=== PATIENT | female | born 1980 | race Two or more races ===

== ENCOUNTER 2020-03-15 07:30 | Inpatient (IN) | payer OTHER ==
[2020-03-13 10:58] VITALS: BMI 20.7
[2020-03-15 10:37] LABS: POTASSIUM 3.8 mmol/L (3.5-5.1)
[2020-03-15 10:39] LABS: CALCIUM 8.7 mg/dL (8.5-10.1)
[2020-03-15 10:40] LABS: ALBUMIN 3.5 g/dl (3.4-5.0)
[2020-03-15 10:43] LABS: CREATININE 0.9 mg/dL (0.55-1.3)
[2020-03-15 10:44] LABS: BILIRUBIN,TOTAL 0.3 mg/dL (0.2-1); TOT PROT 7.5 g/dl (6.4-8.2)
[2020-03-15 10:59] LABS: BASO % 1.9 % (0-2.0); HEMATOCRIT 19.1 % (32.4-45.2); MCHC 28.1 g/dl (32.0-36.0); MEAN CELL VOLUME 65.1 fl (80-96); MEAN PLT VOLUME 8.7 fl (7.5-11.1); MONO % 6.2 % (3.8-10.2); NEUT % 61.9 % (42.8-82.8); PLATELET COUNT 251 K/MM3 (134-434); RBC 2.93 M/mm3 (3.60-5.2); RDW 21.6 % (11.6-15.6); WHITE BLOOD COUNT 5.2 K/mm3 (4.0-10.0)
[2020-03-15 11:01] LABS: MCH 18.3 pg (25.7-33.7)
[2020-03-15 11:02] LABS: HEMOGLOBIN 5.4 GM/dL (10.7-15.3)
[2020-03-15 11:43] LABS: ANISOCYTOSIS 1+; MACROCYTOSIS 0; PLATELET ESTIMATE NORMAL; ROULEAU 1+
[2020-03-15 16:41] LABS: PH,URINE 8.5 (5.0-8.0); URINE APPEARANCE CLOUDY; URINE BILIRUBIN NEGATIVE (NEGATIVE); URINE COLOR YELLOW; URINE GLUCOSE (UA) NEGATIVE (NEGATIVE); URINE KETONE NEGATIVE (NEGATIVE); URINE LEUK ESTERASE NEGATIVE (NEGATIVE); URINE NITRITE NEGATIVE (NEGATIVE); URINE PROTEIN NEGATIVE (NEGATIVE)
[2020-03-16] MEDS ORDERED: PHENAZOPYRIDINE HCL 100 MG TABLET (FP) PO ONE (07:00)
[2020-03-16] MEDS ORDERED: ceFAZolin 2 GRAM PREMIX BAG IVPB ONE ×2 (07:24→08:05)
[2020-03-16] MEDS ORDERED: BUPIVACAINE LIPOSOME/PF (EXPAREL) 266 MG/20 ML VIAL NR ONE (07:30)
[2020-03-16] MEDS ORDERED: MIDAZOLAM HCL 2 MG/2 ML SINGLE DOSE VIAL ONE ×3 (07:32→07:35)
[2020-03-16] MEDS ORDERED: PROPOFOL 20 ML ONE (07:35)
[2020-03-16] MEDS ORDERED: ROCURONIUM BROMIDE 50 MG/5 ML SYRINGE ONE ×2 (07:35→08:22)
[2020-03-16] MEDS ORDERED: SUCCINYLCHOLINE CHLORIDE 200 MG/10 ML SYRINGE ONE (07:35)
[2020-03-16] MEDS ORDERED: ceFAZolin SODIUM 1 GM VIAL ONE ×3 (08:07→22:38)
[2020-03-16 08:32] LABS: BASO % 1.2 % (0-2.0); EOS % 2.4 % (0-4.5); HEMATOCRIT 31.4 % (32.4-45.2); HEMOGLOBIN 10.2 GM/dL (10.7-15.3); LYMPH % 22.5 % (8-40); MCH 23.3 pg (25.7-33.7); MCHC 32.4 g/dl (32.0-36.0); MEAN CELL VOLUME 71.9 fl (80-96); MEAN PLT VOLUME 8.8 fl (7.5-11.1); NEUT % 66.9 % (42.8-82.8); PLATELET COUNT 260 K/MM3 (134-434); RBC 4.37 M/mm3 (3.60-5.2); RDW 25.9 % (11.6-15.6)
[2020-03-16] MEDS ORDERED: HYDROmorphone HCl 2 MG/ML VIAL ONE (08:32)
[2020-03-16] MEDS ORDERED: DEXAMETHASONE SOD PHOSPHATE 4 MG/1 ML VIAL ONE (08:37)
[2020-03-16] MEDS ORDERED: KETOROLAC TROMETHAMINE 30 MG/1 ML VIAL ONE (08:37)
[2020-03-16] MEDS ORDERED: LIDOCAINE HCL/PF 2% SDV 5ML VIAL ONE (08:37)
[2020-03-16] MEDS ORDERED: NEOSTIGMINE METHYLSULFATE 0.5 MG/ML - 10 ML MDV ONE (09:08)
[2020-03-16] MEDS ORDERED: GLYCOPYRROLATE 0.2 MG/1 ML VIAL ONE (09:09)
[2020-03-16] MEDS ORDERED: DOCUSATE SODIUM 100 MG CAPSULE (FP) PO PRN (09:47)
[2020-03-16] MEDS ORDERED: BISACODYL 5 MG TABLET.DR (FP) PO PRN (09:47)
[2020-03-16] MEDS ORDERED: oxyCODONE HCL 5 MG TABLET PO PRN ×2 (09:47→10:07)
[2020-03-16] MEDS ORDERED: ONDANSETRON 4 MG/2 ML VIAL IVPUSH PRN (09:47)
[2020-03-16] MEDS ORDERED: traMADol HCL 50 MG TABLET PO PRN (10:07)
[2020-03-16] MEDS: ACETAMINOPHEN 1000 MG/100 ML VIAL (NON FORMULARY) IVPB SCH ×3 (10:15→21:22)
[2020-03-16] MEDS: SODIUM CHLORIDE 1,000 ML IV SCH (11:32)
[2020-03-16] MEDS: oxyCODONE HCL 5 MG TABLET PO PRN ×2 (12:18→21:25)
[2020-03-16] MEDS ORDERED: CEFAZOLIN 1 GM/D5W 1 GM/50 ML BAG IVPB SCH (16:00)
[2020-03-16] MEDS: IBUPROFEN 800 MG/8 ML IJ IVPB SCH ×2 (16:13→23:28)
[2020-03-16] MEDS ORDERED: CEFAZOLIN 1 GM in DEXTROSE 5%-WATER - 1 GM/50 ML IVPB IVPB SCH (16:15)
[2020-03-16] MEDS ORDERED: DEXTROSE 5%-WATER - 50 ML IVPB ONE ×2 (16:28→22:38)
[2020-03-16] MEDS: CEFAZOLIN 1 GM in DEXTROSE 5%-WATER - 1 GM/50 ML IVPB IVPB SCH ×2 (16:55→23:28)
[2020-03-16 18:22] LABS: HEMATOCRIT 26.3 % (32.4-45.2); MCH 22.2 pg (25.7-33.7); MCHC 30.2 g/dl (32.0-36.0); MEAN CELL VOLUME 73.4 fl (80-96); MEAN PLT VOLUME 9.6 fl (7.5-11.1); PLATELET COUNT 285 K/MM3 (134-434); RBC 3.58 M/mm3 (3.60-5.2); RDW 25.9 % (11.6-15.6); WHITE BLOOD COUNT 20.8 K/mm3 (4.0-10.0)
[2020-03-16 18:40] LABS: POTASSIUM 4.1 mmol/L (3.5-5.1)
[2020-03-16 18:41] LABS: CALCIUM 8.8 mg/dL (8.5-10.1)
[2020-03-16 18:42] LABS: BLOOD UREA NITROGEN 8.2 mg/dL (7-18)
[2020-03-17] MEDS: SODIUM CHLORIDE 1,000 ML IV SCH ×2 (02:23→11:09)
[2020-03-17] MEDS: ACETAMINOPHEN 1000 MG/100 ML VIAL (NON FORMULARY) IVPB SCH (04:59)
[2020-03-17] MEDS: oxyCODONE HCL 5 MG TABLET PO PRN ×3 (05:30→20:50)
[2020-03-17 07:52] LABS: MCHC 32.1 g/dl (32.0-36.0); MEAN CELL VOLUME 71.7 fl (80-96); MEAN PLT VOLUME 8.9 fl (7.5-11.1); PLATELET COUNT 204 K/MM3 (134-434); RDW 26.7 % (11.6-15.6); WHITE BLOOD COUNT 9.3 K/mm3 (4.0-10.0)
[2020-03-17 08:08] LABS: POTASSIUM 3.5 mmol/L (3.5-5.1)
[2020-03-17 08:17] LABS: HEMOGLOBIN 6.4 GM/dL (10.7-15.3)
[2020-03-17 08:27] LABS: BLOOD UREA NITROGEN 6.8 mg/dL (7-18); CALCIUM 8.1 mg/dL (8.5-10.1)
[2020-03-17 08:30] LABS: CREATININE 0.8 mg/dL (0.55-1.3)
[2020-03-17] MEDS: SIMETHICONE 80 MG TAB.CHEW (FP) PO PRN ×2 (08:53→12:56)
[2020-03-17] MEDS: IBUPROFEN 800 MG/8 ML IJ IVPB SCH (08:54)
[2020-03-17] MEDS: ENOXAPARIN NA (PORCINE) 40 MG/0.4 ML DISP.SYRIN SQ SCH (08:59)
[2020-03-17] MEDS: CEFAZOLIN 1 GM in DEXTROSE 5%-WATER - 1 GM/50 ML IVPB IVPB SCH (10:37)
[2020-03-17] MEDS ORDERED: ACETAMINOPHEN 325 MG TABLET (FP) PO ONE (11:30)
[2020-03-17] MEDS ORDERED: IBUPROFEN 600 MG TABLET (FP) PO PRN (16:00)
[2020-03-17] MEDS ORDERED: ACETAMINOPHEN 325 MG TABLET (FP) PO PRN (18:00)
[2020-03-18] MEDS: SODIUM CHLORIDE 1,000 ML IV SCH ×2 (02:21→14:14)
[2020-03-18 09:00] VITALS: BP 149/86; PULSE 85; TEMP 98.2
[2020-03-18 12:16] LABS: BASO % 0.5 % (0-2.0); EOS % 1.3 % (0-4.5); HEMOGLOBIN 9.5 GM/dL (10.7-15.3); LYMPH % 10.5 % (8-40); MCH 25.2 pg (25.7-33.7); MCHC 32.6 g/dl (32.0-36.0); MEAN CELL VOLUME 77.3 fl (80-96); MEAN PLT VOLUME 9.3 fl (7.5-11.1); MONO % 6.1 % (3.8-10.2); NEUT % 81.6 % (42.8-82.8); PLATELET COUNT 210 K/MM3 (134-434); RBC 3.75 M/mm3 (3.60-5.2); RDW 24.6 % (11.6-15.6); WHITE BLOOD COUNT 9.6 K/mm3 (4.0-10.0)
[2020-03-18 12:21] LABS: INR 1.16 (0.83-1.09)
[2020-03-18 12:44] LABS: POTASSIUM 3.6 mmol/L (3.5-5.1)
[2020-03-18 12:46] LABS: BLOOD UREA NITROGEN 4.4 mg/dL (7-18); CALCIUM 8.8 mg/dL (8.5-10.1)
[2020-03-18 12:47] LABS: ALBUMIN 3.1 g/dl (3.4-5.0)
[2020-03-18 12:50] LABS: CREATININE 0.8 mg/dL (0.55-1.3)
[2020-03-18 12:51] LABS: BILIRUBIN,TOTAL 0.8 mg/dL (0.2-1); TOT PROT 6.9 g/dl (6.4-8.2)
[2020-03-18] MEDS: ENOXAPARIN NA (PORCINE) 40 MG/0.4 ML DISP.SYRIN SQ SCH (14:14)
== END 2020-03-18 14:15 | disposition home or self-care (01) | DRG 742 ==
LOC: J7W 08:11
PROVIDERS: ADMIT Obstetrics & Gynecology; ATTEND Obstetrics & Gynecology
PROC: 30233N1 Transfusion of Nonautologous Red Blood Cells into Peripheral Vein, Percutaneous Approach (ICD-10-PCS; 2020-03-15)
PROC: 0UB70ZZ Excision of Bilateral Fallopian Tubes, Open Approach (ICD-10-PCS; 2020-03-16)
PROC: 0UT90ZZ Resection of Uterus, Open Approach (ICD-10-PCS; principal; 2020-03-16 07:30)
DX: D25.9 Leiomyoma of uterus, unspecified (principal); D62 Acute posthemorrhagic anemia; N92.0 Excessive and frequent menstruation with regular cycle; N83.8 Other noninflammatory disorders of ovary, fallopian tube and broad ligament; N71.1 Chronic inflammatory disease of uterus; N72 Inflammatory disease of cervix uteri
CPT/HCPCS: 36415; 36430; 71045-TC-FY; 80048; 80053; 81003; 85025; 85027; 85610; 85730; 86850; 86900; 86901; 86922; 88302-TC; 88307-TC; 93005; 93010; 94010; 94760; J0131; P9058